=== PATIENT | male | born 1940 | race Caucasian/White ===

== ENCOUNTER 2017-12-23 12:08 | Inpatient (IN) | payer OTHER ==
[~2017-12-23] VITALS: Ht 165.1 cm; Wt 61.8 kg
[2017-12-23 13:15] LABS: BASOPHIL % 1.5 % (0-2); PLATELET COUNT 301 x10^3mcL (130-400)
[2017-12-23 13:18] LABS: RED CELL DISTRIBUTION WIDTH 15.4 % (11.5-14.5)
[2017-12-23 13:25] LABS: CALCIUM 9.2 mg/dL (8.5-10.1); CARBON DIOXIDE 29.3 mmol/L (21-32); CHLORIDE SERUM 102 mmol/L (98-107); CREATININE SERUM 1.2 mg/dL (0.7-1.3); GLUCOSE SERUM 113 mg/dL (74-106); POTASSIUM SERUM 3.5 mmol/L (3.5-5.1); SODIUM SERUM 143 mmol/L (136-145)
[2017-12-23 13:39] LABS: ALBUMIN 3.8 g/dL (3.4-5.0); ALKALINE PHOSPHATASE 82 U/L (46-116); ALT/SGPT 24 U/L (16-63); AST/SGOT 25 U/L (15-37); BILIRUBIN TOTAL 0.7 mg/dL (0.20-1.00)
[2017-12-23 13:41] LABS: TOTAL PROTEIN, SERUM 8.8 g/dL (6.4-8.2)
[2017-12-23 16:02] LABS: microscopic required? YES; urine erythrocyte TRACE (NEGATIVE)
[2017-12-23 16:13] LABS: AMPHETAMINE QUAL UR NONE DETECTED (NEG <=1000)
[2017-12-23 16:38] LABS: MAGNESIUM 2.2 mg/dL (1.8-2.4); PHOSPHOROUS 2.9 mg/dL (2.5-4.9)
[2017-12-23 16:39] LABS: CHOLESTEROL/HDL RATIO 2.4
[2017-12-23 16:47] LABS: T3 TOTAL 1.16 ng/mL
[2017-12-23 16:49] LABS: FREE T4 0.88 ng/dL (0.76-1.46); FREE THYROXINE INDEX 2.2 ug/dL (1.4-4.5); T4(THYROXINE) 6.7 ug/dL (4.7-13.3)
[2017-12-23 18:22] VITALS: BP 165/99
[2017-12-23 20:58] VITALS: BP 142/85
[2017-12-24 05:26] VITALS: BP 134/64
[2017-12-24] MEDS ORDERED: ZOCOR80 MG PO (06:25)
[2017-12-24] MEDS ORDERED: ZES10 PO (06:26)
[2017-12-24] MEDS ORDERED: GOOD SENSE ASPI81 M3 PO (06:28)
[2017-12-24] MEDS ORDERED: PLA75 PO (06:28)
[2017-12-24 07:04] LABS: BASOPHIL % 0.4 % (0-2); PLATELET COUNT 225 x10^3mcL (130-400)
[2017-12-24 07:29] LABS: RED CELL DISTRIBUTION WIDTH 15.5 % (11.5-14.5)
[2017-12-24 07:39] LABS: CALCIUM 8.5 mg/dL (8.5-10.1); CHLORIDE SERUM 107 mmol/L (98-107); GLUCOSE SERUM 89 mg/dL (74-106); MAGNESIUM 1.9 mg/dL (1.8-2.4); POTASSIUM SERUM 3.8 mmol/L (3.5-5.1); SODIUM SERUM 143 mmol/L (136-145)
[2017-12-24 09:11] VITALS: BP 130/65
[2017-12-24 17:18] VITALS: BP 151/77
[2017-12-24 21:18] VITALS: BP 140/67
[2017-12-25 04:57] VITALS: BP 125/81
[2017-12-25 07:14] LABS: BASOPHIL % 0.4 % (0-2); PLATELET COUNT 230 x10^3mcL (130-400)
[2017-12-25 07:23] LABS: RED CELL DISTRIBUTION WIDTH 15.4 % (11.5-14.5)
[2017-12-25 07:29] LABS: CALCIUM 8.8 mg/dL (8.5-10.1); CARBON DIOXIDE 24.7 mmol/L (21-32); CHLORIDE SERUM 106 mmol/L (98-107); CREATININE SERUM 0.9 mg/dL (0.7-1.3); GLUCOSE SERUM 87 mg/dL (74-106); PHOSPHOROUS 2.6 mg/dL (2.5-4.9); POTASSIUM SERUM 3.6 mmol/L (3.5-5.1); SODIUM SERUM 138 mmol/L (136-145)
[2017-12-25 09:30] VITALS: BP 148/67
[2017-12-25 20:46] VITALS: BP 157/92
[2017-12-26 06:07] VITALS: BP 173/89
[2017-12-26 06:40] LABS: BASOPHIL % 0.3 % (0-2); PLATELET COUNT 229 x10^3mcL (130-400)
[2017-12-26 06:47] LABS: CALCIUM 8.7 mg/dL (8.5-10.1); CARBON DIOXIDE 25.2 mmol/L (21-32); CHLORIDE SERUM 107 mmol/L (98-107); CREATININE SERUM 0.8 mg/dL (0.7-1.3); GLUCOSE SERUM 84 mg/dL (74-106); MAGNESIUM 1.9 mg/dL (1.8-2.4); PHOSPHOROUS 3.1 mg/dL (2.5-4.9); POTASSIUM SERUM 3.4 mmol/L (3.5-5.1); SODIUM SERUM 143 mmol/L (136-145)
[2017-12-26 07:24] LABS: RED CELL DISTRIBUTION WIDTH 15.3 % (11.5-14.5)
[2017-12-26 12:06] VITALS: BP 155/83
[2017-12-26 15:51] VITALS: BP 155/83
[2017-12-26 17:09] VITALS: BP 158/73
[2017-12-26 21:30] VITALS: BP 144/75
[2017-12-27 06:00] VITALS: BP 156/82
[2017-12-27 09:00] VITALS: BP 166/89
[2017-12-27 09:19] LABS: BASOPHIL % 0.6 % (0-2); PLATELET COUNT 277 x10^3mcL (130-400)
[2017-12-27 09:43] LABS: CARBON DIOXIDE 29.8 mmol/L (21-32); CHLORIDE SERUM 100 mmol/L (98-107); GLUCOSE SERUM 141 mg/dL (74-106); PHOSPHOROUS 3.1 mg/dL (2.5-4.9); POTASSIUM SERUM 3.6 mmol/L (3.5-5.1); SODIUM SERUM 138 mmol/L (136-145)
[2017-12-27 13:00] VITALS: BP 121/76
[2017-12-27 17:00] VITALS: BP 134/70
[2017-12-27 20:07] VITALS: Ht 165.1 cm; Wt 61.8 kg
[2017-12-27 20:51] VITALS: BP 100/64
[2017-12-28 06:00] VITALS: BP 127/65
[2017-12-28 07:28] LABS: BASOPHIL % 0.4 % (0-2); PLATELET COUNT 248 x10^3mcL (130-400)
[2017-12-28 07:29] LABS: RED CELL DISTRIBUTION WIDTH 15.5 % (11.5-14.5)
[2017-12-28 07:31] LABS: CALCIUM 8.9 mg/dL (8.5-10.1); CHLORIDE SERUM 100 mmol/L (98-107); CREATININE SERUM 1.1 mg/dL (0.7-1.3); GLUCOSE SERUM 90 mg/dL (74-106); PHOSPHOROUS 3.8 mg/dL (2.5-4.9); POTASSIUM SERUM 3.6 mmol/L (3.5-5.1); SODIUM SERUM 139 mmol/L (136-145)
[2017-12-28 09:00] VITALS: BP 132/68
[2017-12-28 14:59] VITALS: BP 110/59
[2017-12-28 17:59] VITALS: BP 107/69
[2017-12-28 19:35] VITALS: BP 117/73
[2017-12-29 05:11] VITALS: BP 113/61
[2017-12-29 07:21] LABS: BASOPHIL % 0.5 % (0-2); PLATELET COUNT 258 x10^3mcL (130-400); RED CELL DISTRIBUTION WIDTH 15.4 % (11.5-14.5)
[2017-12-29 07:39] LABS: CARBON DIOXIDE 28.5 mmol/L (21-32); CHLORIDE SERUM 102 mmol/L (98-107); CREATININE SERUM 1.1 mg/dL (0.7-1.3); PHOSPHOROUS 3.5 mg/dL (2.5-4.9); POTASSIUM SERUM 3.8 mmol/L (3.5-5.1); SODIUM SERUM 139 mmol/L (136-145)
[2017-12-29 07:51] LABS: GLUCOSE SERUM 89 mg/dL (74-106)
[2017-12-29 09:06] VITALS: BP 130/65
[2017-12-29 18:50] VITALS: BP 122/72
[2017-12-29 21:01] VITALS: BP 120/64
[2017-12-30 06:01] VITALS: BP 117/73
[2017-12-30 06:46] LABS: CALCIUM 8.9 mg/dL (8.5-10.1); CARBON DIOXIDE 29.5 mmol/L (21-32); CHLORIDE SERUM 100 mmol/L (98-107); CREATININE SERUM 1.3 mg/dL (0.7-1.3); GLUCOSE SERUM 85 mg/dL (74-106); MAGNESIUM 2.3 mg/dL (1.8-2.4); PHOSPHOROUS 4.2 mg/dL (2.5-4.9); SODIUM SERUM 139 mmol/L (136-145)
[2017-12-30 07:06] LABS: BASOPHIL % 0.4 % (0-2); PLATELET COUNT 223 x10^3mcL (130-400); RED CELL DISTRIBUTION WIDTH 15.4 % (11.5-14.5)
[2017-12-30 09:23] VITALS: BP 128/63
[2017-12-30 20:01] VITALS: BP 97/60
[2017-12-31 05:51] VITALS: BP 111/61
[2017-12-31 07:26] LABS: BASOPHIL % 0.5 % (0-2); PLATELET COUNT 218 x10^3mcL (130-400)
[2017-12-31 07:35] LABS: RED CELL DISTRIBUTION WIDTH 15.4 % (11.5-14.5)
[2017-12-31 07:38] LABS: CALCIUM 8.6 mg/dL (8.5-10.1); CARBON DIOXIDE 27.7 mmol/L (21-32); CHLORIDE SERUM 103 mmol/L (98-107); GLUCOSE SERUM 83 mg/dL (74-106); PHOSPHOROUS 2.8 mg/dL (2.5-4.9); SODIUM SERUM 140 mmol/L (136-145)
[2017-12-31 10:21] VITALS: BP 120/60
[2017-12-31 18:10] VITALS: BP 137/66
[2017-12-31 22:01] VITALS: BP 149/83
[2018-01-01 06:01] VITALS: BP 119/73
[2018-01-01 07:24] LABS: BASOPHIL % 0.3 % (0-2); PLATELET COUNT 267 x10^3mcL (130-400)
[2018-01-01 07:38] LABS: CALCIUM 9.3 mg/dL (8.5-10.1); CHLORIDE SERUM 102 mmol/L (98-107); CREATININE SERUM 0.9 mg/dL (0.7-1.3); GLUCOSE SERUM 88 mg/dL (74-106); MAGNESIUM 1.9 mg/dL (1.8-2.4); PHOSPHOROUS 2.6 mg/dL (2.5-4.9); POTASSIUM SERUM 3.9 mmol/L (3.5-5.1); RED CELL DISTRIBUTION WIDTH 15.4 % (11.5-14.5); SODIUM SERUM 141 mmol/L (136-145)
[2018-01-01 08:40] VITALS: BP 119/61
[2018-01-01 21:16] VITALS: BP 118/66
[2018-01-02 06:00] VITALS: BP 135/77
[2018-01-02 07:51] LABS: BASOPHIL % 0.5 % (0-2); PLATELET COUNT 225 x10^3mcL (130-400); RED CELL DISTRIBUTION WIDTH 15.6 % (11.5-14.5)
[2018-01-02 08:45] LABS: CALCIUM 9.2 mg/dL (8.5-10.1); CARBON DIOXIDE 26.3 mmol/L (21-32); CHLORIDE SERUM 104 mmol/L (98-107); CREATININE SERUM 0.8 mg/dL (0.7-1.3); GLUCOSE SERUM 76 mg/dL (74-106); MAGNESIUM 1.9 mg/dL (1.8-2.4); PHOSPHOROUS 2.8 mg/dL (2.5-4.9); SODIUM SERUM 141 mmol/L (136-145)
[2018-01-02 08:53] VITALS: BP 118/63
[2018-01-02 18:16] VITALS: BP 96/58
[2018-01-02 21:00] VITALS: BP 102/61
[2018-01-03 05:43] VITALS: BP 105/55
[2018-01-03 07:01] LABS: BASOPHIL % 0.4 % (0-2); PLATELET COUNT 248 x10^3mcL (130-400)
[2018-01-03 07:06] LABS: RED CELL DISTRIBUTION WIDTH 15.5 % (11.5-14.5)
[2018-01-03 07:16] LABS: CALCIUM 8.8 mg/dL (8.5-10.1); CARBON DIOXIDE 29.9 mmol/L (21-32); CHLORIDE SERUM 100 mmol/L (98-107); CREATININE SERUM 1.1 mg/dL (0.7-1.3); GLUCOSE SERUM 109 mg/dL (74-106); MAGNESIUM 1.8 mg/dL (1.8-2.4); PHOSPHOROUS 3.1 mg/dL (2.5-4.9); POTASSIUM SERUM 3.6 mmol/L (3.5-5.1); SODIUM SERUM 139 mmol/L (136-145)
[2018-01-03 09:00] VITALS: BP 108/65
[2018-01-03 19:30] VITALS: BP 102/57
[2018-01-04 06:30] VITALS: BP 99/61
[2018-01-04 09:32] VITALS: BP 114/62
[2018-01-04 17:07] VITALS: BP 94/38
[2018-01-04 21:08] VITALS: BP 102/62
[2018-01-05 05:25] VITALS: BP 117/52
[2018-01-05 17:09] VITALS: BP 101/66
[2018-01-05 20:36] VITALS: BP 111/54
[2018-01-06 09:50] VITALS: BP 106/54
[2018-01-06 14:53] VITALS: BP 124/60
[2018-01-06 18:39] VITALS: BP 138/78
[2018-01-06 21:54] VITALS: BP 122/64
[2018-01-07 06:18] VITALS: BP 113/62
[2018-01-07 21:57] VITALS: BP 103/52
[2018-01-08 05:47] VITALS: BP 109/61
[2018-01-08 09:13] VITALS: BP 93/43
[2018-01-08 21:34] VITALS: BP 93/57
[2018-01-09 05:49] VITALS: BP 142/73
[2018-01-09 09:12] VITALS: BP 110/58
[2018-01-09 17:38] VITALS: BP 95/55
[2018-01-09 21:00] VITALS: BP 100/66
[2018-01-10 05:55] VITALS: BP 114/63
[2018-01-10 09:45] VITALS: BP 96/56
[2018-01-10 17:00] VITALS: BP 93/55
[2018-01-10 20:48] VITALS: BP 94/52
[2018-01-11 04:58] VITALS: BP 105/49
[2018-01-11 09:43] VITALS: BP 95/51
[2018-01-11 17:59] VITALS: BP 94/55
[2018-01-11 20:39] VITALS: BP 110/64
[2018-01-12 06:08] VITALS: BP 99/52
[2018-01-12 08:44] VITALS: BP 126/54
[2018-01-12 17:09] VITALS: BP 96/53
[2018-01-12 19:14] VITALS: BP 117/60
[2018-01-12 20:33] VITALS: BP 123/66
[2018-01-13 07:55] VITALS: BP 111/57
[2018-01-13 09:23] VITALS: BP 130/71
[2018-01-13 16:46] VITALS: BP 118/62
[2018-01-13 19:15] VITALS: BP 109/60
[2018-01-14 05:24] VITALS: BP 121/65
[2018-01-14 10:21] VITALS: BP 101/60
[2018-01-14 17:45] VITALS: BP 114/67
[2018-01-14 20:56] VITALS: BP 91/50
[2018-01-15 05:21] VITALS: BP 128/75
[2018-01-15 09:29] VITALS: BP 110/66
[2018-01-15 16:39] VITALS: BP 91/51
[2018-01-15 20:36] VITALS: BP 91/49
[2018-01-16 05:42] VITALS: BP 100/61
[2018-01-16 09:34] VITALS: BP 93/49
[2018-01-16 17:13] VITALS: BP 95/60
[2018-01-16 21:31] VITALS: BP 99/60
[2018-01-17 06:06] VITALS: BP 101/62
[2018-01-17 08:53] VITALS: BP 102/62
[2018-01-17 16:24] VITALS: BP 117/61
[2018-01-17 19:57] VITALS: BP 127/68
[2018-01-17 21:18] VITALS: BP 140/74
[2018-01-18 05:51] VITALS: BP 122/86
[2018-01-18 08:40] VITALS: BP 124/68
[2018-01-18 17:13] VITALS: BP 97/56
[2018-01-18 21:00] VITALS: BP 86/42
[2018-01-18 21:30] VITALS: BP 92/51
[2018-01-19 20:40] VITALS: BP 139/65
[2018-01-20 05:07] VITALS: BP 138/71
[2018-01-20 10:33] VITALS: BP 105/54
[2018-01-20 17:09] VITALS: BP 109/54
[2018-01-20 22:02] VITALS: BP 121/58
[2018-01-21 05:47] VITALS: BP 127/70
[2018-01-21 09:08] VITALS: BP 113/58
[2018-01-21 17:57] VITALS: BP 111/51
[2018-01-21 20:31] VITALS: BP 95/57
[2018-01-22 05:42] VITALS: BP 94/51
[2018-01-22 09:39] VITALS: BP 91/48
[2018-01-22 16:53] VITALS: BP 112/63
[2018-01-23 06:10] VITALS: BP 113/65
[2018-01-23 09:14] VITALS: BP 107/50
[2018-01-23 17:24] VITALS: BP 110/55
[2018-01-23 22:10] VITALS: BP 113/60
[2018-01-24 09:56] VITALS: BP 89/59
[2018-01-24 11:00] VITALS: BP 94/55
[2018-01-24 17:37] VITALS: BP 106/56
[2018-01-24 20:48] VITALS: BP 104/56
[2018-01-25 05:31] VITALS: BP 114/65
[2018-01-25 07:34] LABS: BASOPHIL % 0.3 % (0-2); CALCIUM 8.6 mg/dL (8.5-10.1); CHLORIDE SERUM 109 mmol/L (98-107); CREATININE SERUM 0.9 mg/dL (0.7-1.3); GLUCOSE SERUM 77 mg/dL (74-106); MAGNESIUM 2.1 mg/dL (1.8-2.4); PHOSPHOROUS 3.1 mg/dL (2.5-4.9); PLATELET COUNT 167 x10^3mcL (130-400); POTASSIUM SERUM 4.4 mmol/L (3.5-5.1); RED CELL DISTRIBUTION WIDTH 15.6 % (11.5-14.5); SODIUM SERUM 145 mmol/L (136-145)
[2018-01-25 09:11] VITALS: BP 102/55
[2018-01-25 16:48] VITALS: BP 120/70
[2018-01-25 20:29] VITALS: BP 116/65
[2018-01-26 05:25] VITALS: BP 120/56
[2018-01-26 09:00] VITALS: BP 104/59
[2018-01-26 16:45] VITALS: BP 100/50
[2018-01-26 21:42] VITALS: BP 105/52
[2018-01-27 06:08] VITALS: BP 99/56
[2018-01-27 09:24] VITALS: BP 97/54
[2018-01-27 17:35] VITALS: BP 138/63
[2018-01-27 20:48] VITALS: BP 100/55
[2018-01-28 06:13] VITALS: BP 141/75
[2018-01-28 09:17] VITALS: BP 108/57
[2018-01-28 13:15] VITALS: BP 115/65
[2018-01-28 16:48] VITALS: BP 122/65
[2018-01-28 21:48] VITALS: BP 115/63
[2018-01-29 04:45] VITALS: BP 134/66
[2018-01-29 09:43] VITALS: BP 137/71
[2018-01-29 17:25] VITALS: BP 102/48
[2018-01-29 21:25] VITALS: BP 101/56
[2018-01-30 05:22] VITALS: BP 104/67
[2018-01-30 09:54] VITALS: BP 101/54
[2018-01-30 18:01] VITALS: BP 106/55
[2018-01-30 20:55] VITALS: BP 100/55
[2018-01-31 05:52] VITALS: BP 124/73
[2018-01-31 08:06] LABS: BASOPHIL % 0.4 % (0-2); PLATELET COUNT 162 x10^3mcL (130-400)
[2018-01-31 08:08] LABS: CALCIUM 8.9 mg/dL (8.5-10.1); CARBON DIOXIDE 27.6 mmol/L (21-32); CHLORIDE SERUM 104 mmol/L (98-107); CREATININE SERUM 0.9 mg/dL (0.7-1.3); GLUCOSE SERUM 79 mg/dL (74-106); POTASSIUM SERUM 4.6 mmol/L (3.5-5.1); SODIUM SERUM 141 mmol/L (136-145)
[2018-01-31 08:11] LABS: RED CELL DISTRIBUTION WIDTH 16.1 % (11.5-14.5)
[2018-01-31 09:45] VITALS: BP 137/71
[2018-01-31 14:47] VITALS: BP 99/56
[2018-01-31 18:46] VITALS: BP 92/51
[2018-01-31 20:13] VITALS: BP 92/48
[2018-02-01 06:12] VITALS: BP 124/65
[2018-02-01 09:23] VITALS: BP 86/50
[2018-02-01 11:30] VITALS: BP 96/44
[2018-02-01 17:10] VITALS: BP 97/52
[2018-02-01 20:11] VITALS: BP 96/48
[2018-02-02 08:53] VITALS: BP 109/59
[2018-02-02 17:14] VITALS: BP 111/62
[2018-02-02 20:55] VITALS: BP 107/55
[2018-02-03 05:44] VITALS: BP 121/68
[2018-02-03 10:00] VITALS: BP 103/54
[2018-02-03 17:32] VITALS: BP 105/52
[2018-02-04 09:46] VITALS: BP 115/63
[2018-02-04 17:43] VITALS: BP 113/59
[2018-02-04 21:27] VITALS: BP 135/69
[2018-02-05 05:59] VITALS: BP 150/70
[2018-02-05 09:29] VITALS: BP 96/57
[2018-02-05 17:20] VITALS: BP 101/56
[2018-02-05 20:22] VITALS: BP 110/60
[2018-02-06 06:37] VITALS: BP 104/68
[2018-02-06 09:20] VITALS: BP 113/56
[2018-02-06 17:12] VITALS: BP 138/85
[2018-02-06 21:51] VITALS: BP 124/77
[2018-02-07 06:13] VITALS: BP 126/65
[2018-02-07 09:40] VITALS: BP 134/65
[2018-02-07 18:15] VITALS: BP 94/47
[2018-02-07 22:28] VITALS: BP 89/49
[2018-02-08 05:30] VITALS: BP 118/63
[2018-02-08 09:10] VITALS: BP 104/52
[2018-02-08 17:35] VITALS: BP 107/57
[2018-02-08 21:38] VITALS: BP 133/64
[2018-02-09 05:46] VITALS: BP 128/67
[2018-02-09 09:42] VITALS: BP 100/53
[2018-02-09] MEDS ORDERED: ATORVASTATIN CA20 M1 PO (13:53)
[2018-02-09] MEDS ORDERED: QUETIAPINE FUM100 M1 PO (13:53)
[2018-02-09] MEDS ORDERED: MEMANTINE HCL10 MG PO (13:54)
[2018-02-09] MEDS ORDERED: DEPAKOTE250 MG PO (13:55)
[2018-02-09] MEDS ORDERED: LORAZEPAM0.5 MG PO (13:59)
[2018-02-09 17:26] VITALS: BP 102/54
[2018-02-09 22:06] VITALS: BP 108/58
[2018-02-10 05:49] VITALS: BP 105/67
[2018-02-10 09:31] VITALS: BP 96/52
[2018-02-10 10:30] VITALS: BP 96/52
[2018-02-10] MEDS ORDERED: HYD25 PO (10:30)
== END 2018-02-10 11:18 | disposition home or self-care (01) | DRG 56 ==
LOC: ED 12:08 → DU 13:38 → MU 13:38 → DU 18:09 → MU 12-27 17:05
PROVIDERS: Emergency Medicine; Family Medicine; Family Medicine Sports Medicine; Student in an Organized Health Care Education/Training Program
DX: G30.9 Alzheimer's disease, unspecified (principal); G93.41 Metabolic encephalopathy; N17.0 Acute kidney failure with tubular necrosis; E87.2 Acidosis; F02.81 Dementia in other diseases classified elsewhere, unspecified severity, with behavioral disturbance; E87.6 Hypokalemia; G25.81 Restless legs syndrome; I73.9 Peripheral vascular disease, unspecified; I10 Essential (primary) hypertension; D64.9 Anemia, unspecified; E03.9 Hypothyroidism, unspecified; E78.5 Hyperlipidemia, unspecified
CPT/HCPCS: 83880; 84439; J0696; J3230; J3486; J7030; Q0092